=== PATIENT | female | born 2000 | race Caucasian/White ===

== ENCOUNTER 2024-11-15 10:55 | Inpatient (IN) | payer SELFPAY ==
[~2024-11-15] VITALS: Ht 167.6 cm; Wt 49.5 kg
[2024-11-15 11:50] LABS: BASOPHILS % (AUTO) 0.7 % (0.0-2.0); EOSINOPHILS % (AUTO) 1.9 % (1.0-6.0); HEMATOCRIT 43.6 % (36-46); HEMOGLOBIN 14.5 g/dL (12.0-16.0); LYMPHOCYTES # (AUTO) 1.3 K/uL (1.0-4.8); LYMPHOCYTES % (AUTO) 10.2 % (22.0-44.0); MEAN CORPUSCULAR HEMOGLOBIN 31.7 pg (26.0-34.0); MEAN CORPUSCULAR HGB CONC 33.3 G/dL (31.0-37.0); MEAN CORPUSCULAR VOLUME 95 fL (80-100); MONOCYTES # (AUTO) 0.8 K/uL (0.1-1.0); MONOCYTES % (AUTO) 6.2 % (2.0-9.0); NEUTROPHILS # (AUTO) 10.7 K/uL (1.8-7.7); PLATELET COUNT (AUTO) 241 K/uL (150-450); RED BLOOD CELL COUNT(AUTO) 4.58 MIL/uL (4.00-5.20); RED CELL DISTRIBUTION WIDTH 13.6 % (11.5-14.5); WHITE BLOOD COUNT (AUTO) 13.1 K/uL (4.5-11.0)
[2024-11-15 11:51] LABS: COVID AG,FIA SOURCE NASAL SWAB
[2024-11-15 11:54] LABS: APPEARANCE,URINE CLEAR (CLEAR); BILIRUBIN,URINE NEGATIVE (NEGATIVE); COLOR,URINE YELLOW (YELLOW); GLUCOSE, URINE (UA) NEGATIVE (NEGATIVE); KETONES,URINE NEGATIVE (NEGATIVE); LEUKOCYTE ESTERASE ,URINE LARGE (NEGATIVE); NITRATE,URINE NEGATIVE (NEGATIVE); OCCULT BLOOD,URINE LARGE (NEGATIVE); PH,URINE 6.5 (5.0-8.0); PH,URINE DRUG SCREEN 6.5 (5.0-8.0); PROTEIN,URINE TRACE mg/dL (NEGATIVE); SPECIFIC GRAVITIY, URINE 1.023 (1.003-1.030); UROBILINOGEN,URINE <=1.0 mg/dL (<=1.0)
[2024-11-15 11:59] LABS: ALCOHOL, URINE DRUG SCREEN NEGATIVE (NEGATIVE); AMPHET/METH SCREEN,URINE NEGATIVE (NEGATIVE); BARBITURATE SCREEN, URINE NEGATIVE (NEGATIVE); BENZODIAZEPINES SCREEN,URINE NEGATIVE (NEGATIVE); CANNABINOID SCREEN,URINE POSITIVE (NEGATIVE); COCAINE SCREEN,URINE NEGATIVE (NEGATIVE); METHADONE SCREEN, URINE NEGATIVE (NEGATIVE); OPIATE SCREEN,URINE NEGATIVE (NEGATIVE); PHENCYCLIDINE SCREEN,URINE NEGATIVE (NEGATIVE)
[2024-11-15 12:02] LABS: ALCOHOL, BLOOD (SERUM) < 3 mg/dL (0-10)
[2024-11-15 12:03] LABS: ANION GAP 6 mmol/L (8-16); CALCIUM, TOTAL 9.3 mg/dL (8.8-10.5); CARBON DIOXIDE 30 mmol/L (22-29); CHLORIDE 103 mmol/L (98-107); CREATININE 0.71 mg/dL (0.60-1.30); GLOMERULAR FILTR. RATE CALC > 60 mL/min (>60); GLUCOSE,RANDOM 94 mg/dL (70-110); POTASSIUM 3.8 mmol/L (3.5-5.1); SODIUM SERUM 139 mmol/L (136-145); UREA NITROGEN, BLOOD 12 mg/dL (7-18)
[2024-11-15 12:12] LABS: SARS-COV2 (COVID) ANTIGEN,FIA Negative (Negative)
[2024-11-15 12:28] LABS: BACTERIA,URINE Moderate /HPF (None Seen)
[2024-11-15 12:29] LABS: SQUAMOUS EPITHELIAL CELL,UR Moderate /LPF (None Seen)
[2024-11-15] MEDS: LIDOCAINE/PF 1% 2 ML VIAL IM ONE (13:59)
[2024-11-15] MEDS: LORazepam 2 MG TABLET PO PRN (13:59)
[2024-11-15] MEDS: HALOPERIDOL 5 MG TABLET PO PRN (13:59)
[2024-11-15] MEDS: CefTRIAXone SODIUM 1 GM/VIAL IM ONE (13:59)
[2024-11-15 18:56] VITALS: BP 95/64; PULSE 74; RESP 16; TEMP 97.4; O2SAT 98
[2024-11-15 20:09] VITALS: BP 93/57; PULSE 75; RESP 16; TEMP 97.4; O2SAT 97
[2024-11-15 22:10] VITALS: BP 93/57; PULSE 75; RESP 16; TEMP 97.4; O2SAT 97
[2024-11-16 08:16] VITALS: BP 181/121; PULSE 100; RESP 18; TEMP 97.9; O2SAT 97
[2024-11-16] MEDS ORDERED: IBUPROFEN 600 MG TABLET PO PRN (09:15)
[2024-11-16] MEDS ORDERED: DOCUSATE SODIUM 100 MG CAPSULE PO PRN (09:15)
[2024-11-16] MEDS ORDERED: MAGNESIUM HYDROXIDE SUSPENSION 30 ML UDCUP PO PRN (09:15)
[2024-11-16] MEDS ORDERED: MAG HYDROX/ALUMINUM HYD/SIMETH ES 30 ML SUSPENSION UDCUP PO PRN (09:15)
[2024-11-16] MEDS ORDERED: ACETAMINOPHEN 325 MG TABLET PO PRN (09:15)
[2024-11-16] MEDS ORDERED: ALBUTEROL SULFATE HFA 90 MCG/PUFF 8 GM INHALER IH PRN (09:15)
[2024-11-16] MEDS ORDERED: PETROLATUM,WHITE 28 GM JELLY TP PRN (09:15)
[2024-11-16] MEDS ORDERED: BENZOCAINE/MENTHOL [CEPACOL] LOZENGE PO PRN (09:15)
[2024-11-16] MEDS ORDERED: OMEPRAZOLE 20 MG CAPSULE PO PRN (09:15)
[2024-11-16] MEDS ORDERED: CloNIDine HCL 0.1 MG TABLET PO PRN (09:15)
[2024-11-16] MEDS ORDERED: ONDANSETRON 4 MG TABLET PO PRN (09:15)
[2024-11-16] MEDS ORDERED: BACITRACIN 28 GM OINTMENT TP PRN (09:15)
[2024-11-16] MEDS ORDERED: LOPERAMIDE HCL 2 MG CAPSULE PO PRN (09:15)
[2024-11-16 20:09] VITALS: BP 110/73; PULSE 100; RESP 18; TEMP 97.7; O2SAT 98
[2024-11-16] MEDS: RisperiDONE 1 MG TABLET PO SCH (20:51)
[2024-11-16] MEDS: CEPHALEXIN MONOHYDRATE 500 MG CAPSULE PO SCH (20:54)
[2024-11-17 08:18] VITALS: BP 103/64; PULSE 100; RESP 16; TEMP 98; O2SAT 98
[2024-11-18 08:03] VITALS: BP 113/66; PULSE 83; RESP 19; TEMP 97.3; O2SAT 99
[2024-11-18 20:00] VITALS: BP 105/64; PULSE 80; RESP 17; TEMP 98.7; O2SAT 98
[2024-11-19 09:23] VITALS: BP 104/58; PULSE 84; RESP 16; TEMP 96.4; O2SAT 98
[2024-11-19 20:15] VITALS: BP 116/68; PULSE 91; RESP 16; TEMP 96.9; O2SAT 98
[2024-11-20 08:21] VITALS: BP 108/55; PULSE 85; RESP 16; TEMP 98; O2SAT 98
[2024-11-20 20:08] VITALS: BP 112/71; PULSE 100; RESP 19; TEMP 97.6; O2SAT 98
[2024-11-21] MEDS: ZOLPIDEM TARTRATE 10 MG TABLET PO PRN (00:04)
[2024-11-21 08:20] VITALS: BP 118/68; PULSE 78; RESP 16; TEMP 96.9; O2SAT 97
[2024-11-21] MEDS ORDERED: CEPH-558 PO (13:07)
[2024-11-21] MEDS ORDERED: RISP-31 PO (13:08)
== END 2024-11-21 15:10 | disposition home or self-care (01) | DRG 885 ==
LOC: EMS 11:03 → B3A 14:55
PROVIDERS: ADMIT Psychiatry & Neurology Psychiatry; ATTEND Psychiatry & Neurology Psychiatry
PROC: GZHZZZZ Group Psychotherapy (ICD-10-PCS; principal; 2024-11-16)
PROC: GZ52ZZZ Individual Psychotherapy, Cognitive (ICD-10-PCS; 2024-11-16)
DX: F29 Unspecified psychosis not due to a substance or known physiological condition (principal); N39.0 Urinary tract infection, site not specified; F41.9 Anxiety disorder, unspecified; F32.A Depression, unspecified; G47.00 Insomnia, unspecified; K59.00 Constipation, unspecified; Z20.822 Contact with and (suspected) exposure to COVID-19; F20.9 Schizophrenia, unspecified; F12.10 Cannabis abuse, uncomplicated; Z79.899 Other long term (current) drug therapy
CPT/HCPCS: 80048; 80307; 81001; 84703; 85025; 87086; 96372; 99285; G0480; J0696; J3490

== ENCOUNTER 2024-11-23 18:41 | Inpatient (IN) | payer SELFPAY ==
[~2024-11-23] VITALS: Ht 157.5 cm; Wt 49.6 kg
[~2024-11-23 18:41] MED LIST: RISP-31 PO
[2024-11-23 19:15] LABS: EOSINOPHILS % (AUTO) 3.9 % (1.0-6.0); HEMATOCRIT 43.3 % (36-46); HEMOGLOBIN 14.3 g/dL (12.0-16.0); LYMPHOCYTES # (AUTO) 1.8 K/uL (1.0-4.8); LYMPHOCYTES % (AUTO) 13.9 % (22.0-44.0); MEAN CORPUSCULAR HEMOGLOBIN 31.6 pg (26.0-34.0); MEAN CORPUSCULAR HGB CONC 33.1 G/dL (31.0-37.0); MEAN CORPUSCULAR VOLUME 96 fL (80-100); MONOCYTES % (AUTO) 7.4 % (2.0-9.0); NEUTROPHILS # (AUTO) 9.8 K/uL (1.8-7.7); NEUTROPHILS % (AUTO) 73.8 % (40.0-70.0); PLATELET COUNT (AUTO) 277 K/uL (150-450); RED BLOOD CELL COUNT(AUTO) 4.53 MIL/uL (4.00-5.20); RED CELL DISTRIBUTION WIDTH 13.6 % (11.5-14.5); WHITE BLOOD COUNT (AUTO) 13.3 K/uL (4.5-11.0)
[2024-11-23 19:25] LABS: ANION GAP 10 mmol/L (8-16); CALCIUM, TOTAL 9.7 mg/dL (8.8-10.5); CARBON DIOXIDE 32 mmol/L (22-29); CHLORIDE 101 mmol/L (98-107); CREATININE 0.65 mg/dL (0.60-1.30); GLOMERULAR FILTR. RATE CALC > 60 mL/min (>60); GLUCOSE,RANDOM 103 mg/dL (70-110); SODIUM SERUM 143 mmol/L (136-145); UREA NITROGEN, BLOOD 11 mg/dL (7-18)
[2024-11-23 19:39] LABS: ALCOHOL, BLOOD (SERUM) < 3 mg/dL (0-10)
[2024-11-23] MEDS: DiphenhydrAMINE HCL 50 MG/ML VIAL IM ONE (22:21)
[2024-11-23] MEDS: LORazepam 2 MG/ML VIAL IM ONE (22:21)
[2024-11-23] MEDS: HALOPERIDOL LACTATE 5 MG/ML VIAL IM ONE (22:21)
[2024-11-23 22:31] LABS: COVID AG,FIA SOURCE NASAL SWAB
[2024-11-23 22:36] LABS: APPEARANCE,URINE CLEAR (CLEAR); BILIRUBIN,URINE NEGATIVE (NEGATIVE); COLOR,URINE COLORLESS (YELLOW); GLUCOSE, URINE (UA) NEGATIVE (NEGATIVE); KETONES,URINE NEGATIVE (NEGATIVE); LEUKOCYTE ESTERASE ,URINE LARGE (NEGATIVE); NITRATE,URINE NEGATIVE (NEGATIVE); OCCULT BLOOD,URINE NEGATIVE (NEGATIVE); PROTEIN,URINE NEGATIVE (NEGATIVE); SPECIFIC GRAVITIY, URINE 1.006 (1.003-1.030); UROBILINOGEN,URINE <=1.0 mg/dL (<=1.0)
[2024-11-23 22:50] LABS: AMPHET/METH SCREEN,URINE NEGATIVE (NEGATIVE); BARBITURATE SCREEN, URINE NEGATIVE (NEGATIVE); BENZODIAZEPINES SCREEN,URINE NEGATIVE (NEGATIVE); CANNABINOID SCREEN,URINE NEGATIVE (NEGATIVE); COCAINE SCREEN,URINE NEGATIVE (NEGATIVE); METHADONE SCREEN, URINE NEGATIVE (NEGATIVE); OPIATE SCREEN,URINE NEGATIVE (NEGATIVE); PHENCYCLIDINE SCREEN,URINE NEGATIVE (NEGATIVE)
[2024-11-23 22:52] LABS: SARS-COV2 (COVID) ANTIGEN,FIA Negative (Negative)
[2024-11-23 22:54] LABS: ALCOHOL, URINE DRUG SCREEN NEGATIVE (NEGATIVE)
[2024-11-23 23:01] LABS: BACTERIA,URINE Few /HPF (None Seen); RBC,URINE 0-2 /HPF (0-2); SQUAMOUS EPITHELIAL CELL,UR Few /LPF (None Seen); URINALYSIS COMMENT Rare Trich. seen.
[2024-11-23] MEDS ORDERED: HALOPERIDOL 5 MG TABLET PO PRN (23:45)
[2024-11-23] MEDS ORDERED: ZOLPIDEM TARTRATE 10 MG TABLET PO PRN (23:45)
[2024-11-24 03:30] VITALS: O2SAT 100
[2024-11-24 10:19] VITALS: BP 100/47; PULSE 88; RESP 18; TEMP 97.5; O2SAT 99
[2024-11-24] MEDS: INFLUENZA VIRUS VACCINE TVS (6MO+) 2024-25/PF 45 MCG/0.5 ML SYRINGE IM. ONE (15:30)
[2024-11-24] MEDS ORDERED: BENZOCAINE/MENTHOL [CEPACOL] LOZENGE PO PRN (18:45)
[2024-11-24] MEDS ORDERED: CloNIDine HCL 0.1 MG TABLET PO PRN (18:45)
[2024-11-24] MEDS ORDERED: MAGNESIUM HYDROXIDE SUSPENSION 30 ML UDCUP PO PRN (18:45)
[2024-11-24] MEDS ORDERED: DOCUSATE SODIUM 100 MG CAPSULE PO PRN (18:45)
[2024-11-24] MEDS ORDERED: MAG HYDROX/ALUMINUM HYD/SIMETH ES 30 ML SUSPENSION UDCUP PO PRN (18:45)
[2024-11-24] MEDS ORDERED: OMEPRAZOLE 20 MG CAPSULE PO PRN (18:45)
[2024-11-24] MEDS ORDERED: ACETAMINOPHEN 325 MG TABLET PO PRN (18:45)
[2024-11-24] MEDS ORDERED: PETROLATUM,WHITE 28 GM JELLY TP PRN (18:45)
[2024-11-24] MEDS ORDERED: IBUPROFEN 600 MG TABLET PO PRN (18:45)
[2024-11-24] MEDS ORDERED: ALBUTEROL SULFATE HFA 90 MCG/PUFF 8 GM INHALER IH PRN (18:45)
[2024-11-24] MEDS ORDERED: ONDANSETRON 4 MG TABLET PO PRN (18:45)
[2024-11-24] MEDS ORDERED: LOPERAMIDE HCL 2 MG CAPSULE PO PRN (18:45)
[2024-11-24] MEDS ORDERED: BACITRACIN 28 GM OINTMENT TP PRN (18:45)
[2024-11-24] MEDS: RisperiDONE 3 MG TABLET PO SCH (18:50)
[2024-11-24] MEDS: DIVALPROEX SODIUM 500 MG DR TABLET PO SCH (18:50)
[2024-11-24] MEDS: LITHIUM CARBONATE 300 MG CAPSULE PO SCH (18:51)
[2024-11-24] MEDS: LORazepam 2 MG TABLET PO PRN (18:51)
[2024-11-24 20:19] VITALS: RESP 19
[2024-11-25] MEDS: NITROFURANTOIN MONOHYD/M-CRYST 100 MG CAPSULE [MACROBID] PO SCH (08:18)
[2024-11-25 08:35] VITALS: BP 104/55; PULSE 75; RESP 16; TEMP 97.9; O2SAT 96
[2024-11-25 20:00] VITALS: BP 98/65; PULSE 83; RESP 16; TEMP 97.4; O2SAT 97
[2024-11-26 08:25] VITALS: BP 105/61; PULSE 100; RESP 16; TEMP 97.6; O2SAT 99
[2024-11-27 07:07] VITALS: RESP 18
[2024-11-27 08:09] VITALS: BP 105/64; PULSE 100; RESP 17; TEMP 97.4; O2SAT 98
[2024-11-27 20:13] VITALS: RESP 16
[2024-11-28 10:08] VITALS: BP 102/62; PULSE 79; RESP 16; TEMP 97.5; O2SAT 100
[2024-11-28 20:07] VITALS: BP 126/71; PULSE 81; RESP 17; TEMP 97.4; O2SAT 99
[2024-11-29 08:17] VITALS: BP 92/50; PULSE 75; RESP 16; TEMP 97.6; O2SAT 98
[2024-11-29] MEDS ORDERED: RISP-32 PO (14:47)
[2024-11-29] MEDS ORDERED: DIVA-112 PO (14:48)
[2024-11-29] MEDS ORDERED: LITH300C3 PO (14:48)
== END 2024-11-29 17:45 | disposition home or self-care (01) | DRG 885 ==
LOC: EMS 18:41 → B3A 11-24 04:12 → EMS 11-24 04:26
PROVIDERS: ADMIT Psychiatry & Neurology Psychiatry; ATTEND Psychiatry & Neurology Psychiatry
DX: F20.9 Schizophrenia, unspecified (principal); N39.0 Urinary tract infection, site not specified; F12.10 Cannabis abuse, uncomplicated; F32.A Depression, unspecified; K59.00 Constipation, unspecified; G47.00 Insomnia, unspecified; F41.9 Anxiety disorder, unspecified; Z20.822 Contact with and (suspected) exposure to COVID-19
CPT/HCPCS: 80048; 80178; 80307; 81001; 84702; 85025; 87086; 99285; G0480